=== PATIENT | female | born 1995 | race Caucasian/White ===

== ENCOUNTER 2017-07-08 07:20 | Day surgery (SDC) | payer BC, OTHER ==
[~2017-07-08] VITALS: Ht 157.5 cm; Wt 60.0 kg
[2017-07-08 08:00] VITALS: Ht 157.5 cm; Wt 60.0 kg
[2017-07-08] MEDS ORDERED: [UNRECOGNIZED DRUG - OTHER] (08:10)
[2017-07-08] MEDS ORDERED: [UNRECOGNIZED DRUG - OTHER] (08:10)
[2017-07-08 08:22] VITALS: BP 100/61; PULSE 59; RESP 12
--- NOTE | 2017-07-08 09:39 | OPPN ---
Date/Time of Note Date/Time of Note DATE: 07/08/17 TIME: 09:38 Operative Report Preoperative Diagnosis Chronic diarrhea abdominal pain Postoperative Diagnosis Severe ulcerative colitis Operation/Procedure Performed Colonoscopy and biopsy Surgeon see signature line assistant auto center manager None Anesthesia: moderate sedation Estimated blood loss: none Transfusion Required none Specimen Random colon biopsy Grafts/Implants none Complications none LIMA DANIELS MD Jul 08, 2017 09:39
[2017-07-08] MEDS ORDERED: MIDAZOLAM 1 MG/ML 2 ML INJ ONE (09:44)
[2017-07-08] MEDS ORDERED: FENTAnyl 50 MCG/ML VIAL ONE (09:44)
[2017-07-08 10:04] VITALS: BP 117/82; RESP 14
--- NOTE | 2017-07-09 04:23 | GILP ---
DATE OF PROCEDURE: NAME OF PROCEDURES: Colonoscopy and biopsy. SURGEON: Oziel Mayers MD PREOPERATIVE DIAGNOSES: 1. Chronic diarrhea. 2. Lower abdominal pain. POSTOPERATIVE DIAGNOSIS: Severe ulcerative colitis and biopsies were taken for histopathology. INDICATION FOR THE PROCEDURE: Ms. Maria Eugenia Melendez is a 22-year-old female patient who had history of ulcerative colitis and she was taking medication which she discontinued. The patient started having lower abdominal pain and chronic diarrhea. The patient was scheduled for colonoscopy for further e valuation. The procedure and possible complications are well explained to the patient and the family and consen t was obtained. DESCRIPTION OF PROCEDURE: Under the influence of fentanyl and Versed, the colonoscope was carefully introduced in the rectum and under direct vision, it was advanced to the proximal part of the colon . FINDINGS: The patient was noted to have severe ulcerative colitis with bleeding. Biopsies were sirisha en for histopathology. She tolerated the procedure very well and there was no complication from the procedure. At the end of the procedures, she was awake with stable vital signs and she was discharged home to the care of her family. IMPRESSION: 1. Severe ulcerative colitis extending to the proximal part of the colon. 2. Biopsies were taken for histopathology. PLAN: 1. Apriso 4 tablets p.o. daily. 2. Await histopathology reports. Dictated By: OZIEL PICHARDO/VON Conf#: [id number] DID#: [id number]
== END 2017-07-08 11:19 | disposition home or self-care (01) ==
LOC: GIL 07:20
PROVIDERS: ATTEND Internal Medicine Gastroenterology
DX: K51.911 Ulcerative colitis, unspecified with rectal bleeding (principal); R10.9 Unspecified abdominal pain; K52.9 Noninfective gastroenteritis and colitis, unspecified
CPT/HCPCS: 45380; 84703; 88305; J2250; J3010; Z7610